=== PATIENT | female | born 1985 | race Caucasian/White ===

== ENCOUNTER → 2017-11-07 | Outpatient (CLI) | payer OTHER | LOC: FIMAGING 18:48 | PROVIDERS: ATTEND Family Medicine | DX: H92.03 Otalgia, bilateral (principal); J32.2 Chronic ethmoidal sinusitis; J32.0 Chronic maxillary sinusitis; M62.89 Other specified disorders of muscle ==

== ENCOUNTER → 2018-07-13 | Outpatient (CLI) | payer OTHER | LOC: CIMAGING 14:13 | PROVIDERS: ATTEND Family Medicine | DX: M79.662 Pain in left lower leg (principal) | CPT/HCPCS: 93971-PO ==

== ENCOUNTER → 2018-08-03 | Outpatient (CLI) | payer OTHER | LOC: EMCIMAGING 08:55 ==